=== PATIENT | male | born 1970 | race Hispanic/Latino ===

== ENCOUNTER 2023-11-16 07:01 | Day surgery (SDC) | payer OTHER ==
[~2023-11-16] VITALS: Ht 167.6 cm; Wt 127.0 kg
[~2023-11-16 07:01] MED LIST: ZESTRIL5 M1 PO
[2023-11-16] MEDS ORDERED: PERCOCET 5/325M1 TAB PO ×2 (11:14→12:26)
[2023-11-16 12:59] VITALS: BP 133/78
== END 2023-11-16 13:15 | disposition home or self-care (01) | DRG 355 ==
LOC: ORM 07:01
PROVIDERS: ATTEND Surgery
PROC: 0WUF0JZ Supplement Abdominal Wall with Synthetic Substitute, Open Approach (ICD-10-PCS; principal; 2023-11-16)
DX: K43.6 Other and unspecified ventral hernia with obstruction, without gangrene (principal); I10 Essential (primary) hypertension
CPT/HCPCS: C9290; J0131; J0690